=== PATIENT | male | born 1990 | race Two or more races ===

== ENCOUNTER 2022-02-10 09:05 | Emergency (ER) | payer SELFPAY ==
[~2022-02-10] VITALS: Ht 167.6 cm; Wt 74.8 kg
--- NOTE | 2022-02-10 09:12 | NUR ---
BIB MOM C/O GEN RASH STARTED SUNDAY AND FEVER. AFEBRILE UPON ARRIVAL. TO ER BED 7, HOOKED TO MONITOR, CHANGED TO HOSP GOWN, WARM BLANKET PROVIDED, AWAITNG MD ARCINIEGA
--- NOTE | 2022-02-10 09:58 | NUR ---
DR THORNTON AT BEDSIDE
[2022-02-10] MEDS ORDERED: ACETAMINOPHEN ES 500 MG TABLET ONE (10:10)
[2022-02-10] MEDS ORDERED: VALACYCLOVIR HCL 500 MG TABLET ONE (10:11)
--- NOTE | 2022-02-10 10:22 | NUR ---
HOT METAL CHARGER AT BEDSIDE FOR BLOOD DRAW
[2022-02-10] MEDS ORDERED: ACETAMINOPHEN ES 500 MG TABLET PO ONE (10:30)
[2022-02-10] MEDS ORDERED: VALACYCLOVIR HCL 500 MG TABLET PO ONE (10:30)
[2022-02-10] MEDS ORDERED: VALA100026 PO (11:15)
[2022-02-10] MEDS ORDERED: ACET-2605 PO (11:15)
--- NOTE | 2022-02-10 11:25 | NUR ---
Patient discharged to home in stable condition. Written and verbal after care instructions given. Patient verbalizes understanding of instruction.
[2022-02-10 11:26] VITALS: BP 122/67
== END 2022-02-10 11:26 | disposition home or self-care (01) ==
LOC: ER 09:16
DX: B01.9 Varicella without complication (principal)
CPT/HCPCS: 36415; 86592